=== PATIENT | female | born 2005 | race African-American/Black ===

== ENCOUNTER 2024-03-15 05:34 | Emergency (ER) | payer SELFPAY ==
[2024-03-15] MEDS ORDERED: Ondansetron 4 MG/2 ML VIAL IV ONE (06:15)
[2024-03-15] MEDS ORDERED: fentaNYL 100 MCG/2 ML VIAL IV ONE (06:15)
[2024-03-15 06:18] LABS: BASO # 0.02 K/mm3 (0.02-0.10); EOS # 0.21 K/mm3 (0.04-0.40); EOS % 3.6 % (0.1-4.0); HEMOGLOBIN 12.3 g/dL (12.0-15.0); LYMPH# 1.95 K/mm3 (1.20-3.40); MEAN CELL VOLUME 87 fl (78-95); MEAN CORPUSCULAR HEMOGLOBIN 29 pg (26-32); MEAN CORPUSCULAR HGB CONC 33 g/dL (33-37); MEAN PLATELET VOLUME 9.3 fl (7.4-10.4); MONO # 0.47 K/mm3 (0.10-0.60); NEU # 3.18 K/mm3 (1.40-6.50); PLATELET COUNT 318 K/mm3 (130-400); RED BLOOD COUNT 4.27 M/mm3 (4.10-5.30); WHITE BLOOD COUNT 5.9 K/mm3 (4.8-10.8)
[2024-03-15 06:33] LABS: ALBUMIN 3.8 g/dL (3.5-5.0)
[2024-03-15 06:36] LABS: TOTAL PROTEIN 7.6 g/dL (6.4-8.3)
[2024-03-15 06:38] LABS: TOTAL BILIRUBIN 0.3 mg/dL (0.2-1.2)
[2024-03-15] MEDS ORDERED: Iohexol 300 - 100 ML VIAL IV ONE (06:51)
[2024-03-15] MEDS ORDERED: Naproxen 250 MG TAB PO ONE (07:15)
[2024-03-15] MEDS ORDERED: Potassium Bicarbonate/Citrate 20 MEQ Effervescent TAB PO ONE (07:30)
[2024-03-15 08:03] LABS: PH-URINE 5.5 (5.0 - 8.0); URINE APPEARANCE CLEAR (CLEAR); URINE BILIRUBIN NEGATIVE (NEGATIVE); URINE BLOOD NEGATIVE (NEGATIVE); URINE COLOR YELLOW (YELLOW); URINE GLUCOSE 3+ (NEGATIVE); URINE KETONE NEGATIVE (NEGATIVE); URINE LEUKOCYTE ESTERASE NEGATIVE (NEGATIVE); URINE NITRATE NEGATIVE (NEGATIVE); URINE PROTEIN(semi-quant) NEGATIVE (NEGATIVE); URINE WBC 0-1 /hpf (0-3)
[2024-03-15 09:03] VITALS: BP 108/75
== END 2024-03-15 09:08 | disposition home or self-care (01) ==
LOC: ED 05:34
PROVIDERS: Physician Assistant
DX: E86.0 Dehydration (principal); E87.6 Hypokalemia; R10.32 Left lower quadrant pain
CPT/HCPCS: J2405; J3010; Q9967